=== PATIENT | female | born 1995 | race Caucasian/White ===

== ENCOUNTER 2020-05-09 07:28 | Inpatient (IN) | payer OTHER ==
[~2020-05-09] VITALS: Ht 154.9 cm; Wt 71.7 kg
[~2020-05-09 07:28] MED LIST: IBUPROFEN600 MG PO; MACROBID 100 M100 MG PO; NORCO 5-325 TA1 EACH PO; PRENATAL VITAM1 EAC8 PO; VALTREX1000 MG PO
[2020-05-09 09:06] LABS: HEMOGLOBIN 12.7 gm/dl (12.3-15.3); RED BLOOD COUNT 4.01 M/UL (4.00-5.10); WHITE BLOOD COUNT 10.4 K/UL (4.5-11.0)
[2020-05-09] MEDS ORDERED: VALTREX500 MG PO (10:51)
[2020-05-09] MEDS ORDERED: CLARITIN10 M1 PO (10:52)
[2020-05-09] MEDS ORDERED: PRENATABS FA T1 EACH PO (10:53)
[2020-05-10 05:31] LABS: HEMOGLOBIN 11.3 gm/dl (12.3-15.3)
[2020-05-11] MEDS ORDERED: IBUPROFEN600 MG PO (09:55)
[2020-05-11] MEDS ORDERED: COLACE 100MG C100 MG PO (09:55)
== END 2020-05-11 15:48 | disposition home or self-care (01) | DRG 806 ==
LOC: GENOP 07:28 → OB 08:30
PROVIDERS: ADMIT Obstetrics & Gynecology
PROC: 10E0XZZ Delivery of Products of Conception, External Approach (ICD-10-PCS; principal; 2020-05-09)
DX: O69.81X0 Labor and delivery complicated by cord around neck, without compression, not applicable or unspecified (principal); O98.52 Other viral diseases complicating childbirth; Z37.0 Single live birth; Z3A.39 39 weeks gestation of pregnancy; Z28.21 Immunization not carried out because of patient refusal; Z20.828 Contact with and (suspected) exposure to other viral communicable diseases; B00.9 Herpesviral infection, unspecified; O99.334 Smoking (tobacco) complicating childbirth; F17.210 Nicotine dependence, cigarettes, uncomplicated; O99.344 Other mental disorders complicating childbirth
CPT/HCPCS: 36415; 80307; 81001; 82800; 83518; 85014; 85018; 85025; 87635; J2590; J7120; U0003

== ENCOUNTER 2020-12-28 19:47 | Emergency (ER) | payer SELFPAY ==
[~2020-12-28 19:47] MED LIST changes: +CLARITIN10 M1 PO; +COLACE 100MG C100 MG PO; +PRENATABS FA T1 EACH PO; +VALTREX500 MG PO
[2020-12-30 21:09] LABS: CHLAMYDIA TRACHOMATIS, NAA Negative (Negative); NEISSERIA GONORRHOEAE, NAA Positive (Negative)
== END 2020-12-28 22:25 | disposition home or self-care (01) ==
LOC: ER1 19:47
PROVIDERS: Emergency Medicine
DX: N34.2 Other urethritis (principal); F17.210 Nicotine dependence, cigarettes, uncomplicated
CPT/HCPCS: 81001; 84703; 87086; 87210; 99283